=== PATIENT | female | born 1980 | race Caucasian/White ===

== ENCOUNTER 2017-05-16 15:05 | Emergency (ER) | payer SELFPAY ==
[2017-05-16 15:39] VITALS: BP 153/73; PULSE 94; RESP 24; TEMP 98.3; O2SAT 99
[2017-05-16 16:37] LABS: AUTOMATED NEUTROPHIL # 9.5 TH/MM3 (1.8-7.7); BASOPHIL # 0.1 TH/MM3 (0-0.2); BASOPHIL % 0.7 % (0.0-2.0); EOSINOPHIL # 0.2 TH/MM3 (0-0.4); EOSINOPHIL % 1.4 % (0.0-4.0); HEMATOCRIT 42.9 % (35.0-46.0); HEMOGLOBIN 14.4 GM/DL (11.6-15.3); LYMPH % 19.3 % (9.0-44.0); LYMPHOCYTE # 2.5 TH/MM3 (1.0-4.8); MEAN CELL VOLUME 92.7 FL (80.0-100.0); MEAN CORPUSCULAR HEMOGLOBIN 31.3 PG (27.0-34.0); MEAN CORPUSCULAR HGB CONC 33.7 % (32.0-36.0); MEAN PLATELET VOLUME 8.4 FL (7.0-11.0); MONO % 5.4 % (0.0-8.0); MONOCYTE # 0.7 TH/MM3 (0-0.9); NEUT % 73.2 % (16.0-70.0); PLATELET COUNT 283 TH/MM3 (150-450); RED BLOOD COUNT 4.62 MIL/MM3 (4.00-5.30)
[2017-05-16 16:53] LABS: BLOOD UREA NITROGEN 6 MG/DL (7-18); CALCIUM 8.7 MG/DL (8.5-10.1); CHLORIDE 103 MEQ/L (98-107); CREATININE 0.88 MG/DL (0.50-1.00); GLOMERULAR FILTRATION RATE 73 ML/MIN (>89); GLUCOSE,RANDOM 84 MG/DL (74-106); SODIUM (NA) 141 MEQ/L (136-145)
--- NOTE | 2017-05-17 11:40 | PD ---
HPI Chief Complaint: Psychiatric Symptoms Time Seen by Provider: 15:36 Travel History International Travel<30 days: No Contact w/Intl Traveler<30days: No Traveled to known affect area: No History of Present Illness HPI 37-year-old female presents to [facility] for psychiatric evaluation. Patient has history of bipolar disorder. States she has been off of her medication. Denies suicidal homicidal ideations. She does want to speak to a counselor. She has no other symptoms to report. PFSH Past Medical History Bipolar Disorder: Yes Social History Tobacco Use: No Substance Use: No Allergies-Medications (Allergen,Severity, Reaction): Coded Allergies: No Known Allergies (Unverified , 05/16/17) Review of Systems Except as stated in HPI: all other systems reviewed are Neg Physical Exam Narrative Well-nourished female patient. She is ambulatory with a nonantalgic gait. She appears nontoxic. She has even respirations. Normal heart rate. Moves all extremities without difficulty. She speaks clearly to me. Data Data Last Documented VS Vital Signs Date Time Temp Pulse Resp B/P (MAP) Pulse Ox O2 Delivery O2 Flow Rate FiO2 05/16/17 15:39 98.3 94 24 153/73 (99) 99 Orders Orders Complete Blood Count With Diff (05/16/17 15:41) Thyroid Stimulating Hormone (05/16/17 15:41) Basic Metabolic Panel (Bmp) (05/16/17 15:41) Psych Screen (05/16/17 15:41) Drug Screen, Random Urine (05/16/17 15:41) Alcohol (Ethanol) (05/16/17 15:41) Labs Laboratory Tests Test 05/16/17 15:52 White Blood Count 13.0 TH/MM3 Red Blood Count 4.62 MIL/MM3 Hemoglobin 14.4 GM/DL Hematocrit 42.9 % Mean Corpuscular Volume 92.7 FL Mean Corpuscular Hemoglobin 31.3 PG Mean Corpuscular Hemoglobin Concent 33.7 % Red Cell Distribution Width 13.0 % Platelet Count 283 TH/MM3 Mean Platelet Volume 8.4 FL Neutrophils (%) (Auto) 73.2 % Lymphocytes (%) (Auto) 19.3 % Monocytes (%) (Auto) 5.4 % Eosinophils (%) (Auto) 1.4 % Basophils (%) (Auto) 0.7 % Neutrophils # (Auto) 9.5 TH/MM3 Lymphocytes # (Auto) 2.5 TH/MM3 Monocytes # (Auto) 0.7 TH/MM3 Eosinophils # (Auto) 0.2 TH/MM3 Basophils # (Auto) 0.1 TH/MM3 CBC Comment DIFF FINAL Differential Comment Blood Urea Nitrogen 6 MG/DL Creatinine 0.88 MG/DL Random Glucose 84 MG/DL Calcium Level 8.7 MG/DL Sodium Level 141 MEQ/L Potassium Level 3.9 MEQ/L Chloride Level 103 MEQ/L Carbon Dioxide Level 30.0 MEQ/L Anion Gap 8 MEQ/L Estimat Glomerular Filtration Rate 73 ML/MIN Thyroid Stimulating Hormone 3rd Gen 1.430 uIU/ML Urine Opiates Screen NEG Urine Barbiturates Screen NEG Urine Amphetamines Screen NEG Urine Benzodiazepines Screen NEG Urine Cocaine Screen NEG Urine Cannabinoids Screen POS Ethyl Alcohol Level LESS THAN 3 MG/DL MDM Medical Decision Making Medical Screen Exam Complete: Yes Emergency Medical Condition: Yes Medical Record Reviewed: Yes Differential Diagnosis Mood disorder versus personality disorder versus adjustment reaction disorder Narrative Course 37-year-old female presents to the emergency department voluntarily for psychiatric evaluation. Patient appears without distress. She denies suicidal homicidal ideations. Prior to bed placement, patient chooses to leave the emergency department. AMA: The risks of leaving against medical advice without further evaluation treatment were discussed with the patient. These risks include cardiac dysfunction, cardiac dysrhythmia, possible heart attack, possible stroke or . The patient indicated understanding of these risks and appeared to have the capacity to make this decision. Diagnosis Primary Impression: Psychiatric complaint Patient Instructions: General Instructions Departure Forms: Tests/Procedures Disposition: 07 AGAINST MEDICAL ADVICE Condition: Stable Camille TeeP May 17, 2017 11:40
== END 2017-05-16 17:01 | disposition left against medical advice (07) ==
LOC: NED 15:05
DX: F12.10 Cannabis abuse, uncomplicated (principal); F31.9 Bipolar disorder, unspecified
CPT/HCPCS: 80048; 80307; 84443; 85025; 99283